=== PATIENT | male | born 1980 | race Caucasian/White ===

== ENCOUNTER → 2016-05-28 | Outpatient (CLI) | payer BC ==
[~2016-05-28] MED LIST: ALPPOPS5 OPB; DORZ1SOL OPB; FOLI1TAB7 PO; LATA0.009 OPB; LISI20TA3 PO; METH2.5T PO; PREDPOW63 PO; SERT25TA PO; TIMO0.2534 OPB
[2016-05-28 14:11] LABS: CHOLESTEROL/HDL RATIO 5.6
[2016-05-28 14:59] LABS: ESTIMATED AVERAGE GLUCOSE 100 mg/dl; HA1C FLAG Normal (Normal)
== END | disposition home or self-care (01) ==
LOC: C.LABBC 10:43
PROVIDERS: ATTEND Internal Medicine
DX: R73.01 Impaired fasting glucose (principal)

== ENCOUNTER → 2017-01-12 | Outpatient (CLI) | payer BC | END | disposition home or self-care (01) | LOC: C.PATHSPEC 11:50 | PROVIDERS: ATTEND Plastic Surgery | DX: L98.9 Disorder of the skin and subcutaneous tissue, unspecified (principal) ==

== ENCOUNTER → 2017-02-11 | Outpatient (CLI) | payer BC ==
[2017-02-11 14:33] LABS: ALT/SGPT 35 U/L (12-78); AST/SGOT 19 U/L (15-37); BLOOD UREA NITROGEN 11 mg/dl (7-18); BUN/CREATININE RATIO 13.3 (10-20); CALCIUM 8.8 mg/dl (8.5-10.1); CARBON DIOXIDE 25 mmol/L (21-32); CHLORIDE 106 mmol/L (98-107); CHOLESTEROL 209 mg/dl (0-200); CREATININE 0.83 mg/dl (0.60-1.40); GLUCOSE 105 mg/dl (70-99); POTASSIUM 3.9 mmol/L (3.5-5.1); SODIUM 138 mmol/L (136-145); TRIGLYCERIDES 130 mg/dl (0-150); VERY LOW DENSITY LIPOPROT CALC 26 mg/dl
[2017-02-11 14:44] LABS: ALKALINE PHOSPHATASE 111 U/L (45-117); CHOLESTEROL/HDL RATIO 5.1; HDL CHOLESTEROL 41 mg/dl; LDL CHOLESTEROL CALCULATED 142 mg/dl
== END | disposition home or self-care (01) ==
LOC: C.LABBC 11:28
PROVIDERS: ATTEND Internal Medicine
DX: E78.5 Hyperlipidemia, unspecified (principal); R73.01 Impaired fasting glucose; I10 Essential (primary) hypertension

== ENCOUNTER → 2017-02-25 | Outpatient (CLI) | payer BC ==
--- NOTE | 2017-02-25 13:58 | DIAGNOSTIC IMAGING REPORT ---
LEFT ANKLE 3 VIEWS HISTORY: Left ANKLE PAIN COMPARISON: None. FINDINGS: There is no fracture or dislocation. Mild focal soft tissue swelling anterior to the distal tibia. No radiopaque foreign bodies. IMPRESSION: No fractures. Mild focal soft tissue swelling anterior to the distal tibia. Electronically signed by: Jaspreet Adam M.D. 02/25/2017 1:56 PM Dictated Date/Time: 02/25/2017 1:53 PM
== END | disposition home or self-care (01) ==
LOC: C.RAD1850 13:37
PROVIDERS: ATTEND Physician Assistant
DX: M25.572 Pain in left ankle and joints of left foot (principal)

== ENCOUNTER → 2017-03-02 | Outpatient (CLI) | payer BC ==
--- NOTE | 2017-03-02 09:04 | DIAGNOSTIC IMAGING REPORT ---
LEFT ANKLE ULTRASOUND CLINICAL HISTORY: M25.572 Left ankle pain COMPARISON STUDY: Left ankle 02/25/2017. FINDINGS: Soft tissue edema/swelling seen within the anterior ankle. There is identification of the anterior tibialis tendon. This appears symmetric to the right side. IMPRESSION: Focal soft tissue swelling/edema within the anterior ankle surrounding the anterior tibialis tendon. However, the tendon appears intact Electronically signed by: Jaspreet Adam M.D. 03/02/2017 9:02 AM Dictated Date/Time: 03/02/2017 8:56 AM
== END | disposition home or self-care (01) ==
LOC: C.ULTR 08:10
PROVIDERS: ATTEND Physician Assistant
DX: M25.572 Pain in left ankle and joints of left foot (principal)

== ENCOUNTER → 2017-06-10 | Outpatient (CLI) | payer OTHER ==
[~2017-06-10] MED LIST changes: -FOLI1TAB7 PO; +FOLI1TAB8 PO
[2017-06-10 13:25] LABS: HEMOGLOBIN 16.1 g/dL (14.0-18.0); MEAN CELL VOLUME 88.6 fL (80-100); MEAN PLATELET VOLUME 10.3 fL (7.4-10.4); PLATELET COUNT 261 K/uL (130-400); RED CELL DISTRIBUTION WIDTH CV 13.1 % (11.5-14.5); RED CELL DISTRIBUTION WIDTH SD 42.4 fL (36.4-46.3); WHITE BLOOD COUNT 14.88 K/uL (4.8-10.8)
[2017-06-10 14:10] LABS: CREATININE 0.97 mg/dl (0.60-1.40)
[2017-06-10 14:11] LABS: BLOOD UREA NITROGEN 22 mg/dl (7-18); CALCIUM 8.8 mg/dl (8.5-10.1); CARBON DIOXIDE 28 mmol/L (21-32); CREATININE 0.97 mg/dl (0.60-1.40); GLUCOSE 95 mg/dl (70-99); POTASSIUM 3.4 mmol/L (3.5-5.1); SODIUM 134 mmol/L (136-145)
[2017-06-10 15:00] LABS: HEP C IGG 13 YRS+OLDER_RFLX NEG (NEG)
[2017-06-11 15:14] LABS: HEPATITIS B CORE IGM TC51854R NON-REACTIVE (NON-REACTIVE)
== END | disposition home or self-care (01) ==
LOC: C.LABBC 09:33
PROVIDERS: ATTEND Internal Medicine
DX: Z15.89 Genetic susceptibility to other disease (principal); H20.023 Recurrent acute iridocyclitis, bilateral; I10 Essential (primary) hypertension

== ENCOUNTER → 2017-07-11 | Outpatient (CLI) | payer OTHER ==
--- NOTE | 2017-07-11 13:56 | DIAGNOSTIC IMAGING REPORT ---
CHEST 2 VIEWS ROUTINE CLINICAL HISTORY: Cough. Fever. COMPARISON STUDY: Chest radiograph October 28, 2015. FINDINGS: There is no pneumothorax or pleural effusion. There is no consolidation to suggest pneumonia. Cardiac size is normal. Mediastinal contours are normal. No evidence for pulmonary edema. A 5 mm metallic density projecting over the medial right clavicle is unchanged. IMPRESSION: No acute cardiopulmonary findings. Electronically signed by: Sesar Kat M.D. 07/11/2017 1:55 PM Dictated Date/Time: 07/11/2017 1:53 PM
== END | disposition home or self-care (01) ==
LOC: C.RAD 12:57
PROVIDERS: ATTEND Internal Medicine
DX: R05 Cough (principal); R50.9 Fever, unspecified

== ENCOUNTER → 2017-08-25 | Outpatient (CLI) | payer OTHER ==
[2017-08-25 13:45] LABS: ALBUMIN 3.8 gm/dl (3.4-5.0); ALT/SGPT 37 U/L (12-78); AST/SGOT 21 U/L (15-37); BLOOD UREA NITROGEN 17 mg/dl (7-18); CALCIUM 8.8 mg/dl (8.5-10.1); CARBON DIOXIDE 27 mmol/L (21-32); CHOLESTEROL 283 mg/dl (0-200); CREATININE 0.99 mg/dl (0.60-1.40); GLUCOSE 94 mg/dl (70-99); POTASSIUM 3.5 mmol/L (3.5-5.1); SODIUM 137 mmol/L (136-145)
[2017-08-25 13:58] LABS: ALKALINE PHOSPHATASE 105 U/L (45-117); LDL CHOLESTEROL CALCULATED 195 mg/dl; TOTAL PROTEIN 7.4 gm/dl (6.4-8.2)
== END | disposition home or self-care (01) ==
LOC: C.LABBC 09:28
PROVIDERS: ATTEND Internal Medicine
DX: E78.5 Hyperlipidemia, unspecified (principal); R73.01 Impaired fasting glucose; Z79.899 Other long term (current) drug therapy; Z15.89 Genetic susceptibility to other disease; I10 Essential (primary) hypertension; H20.10 Chronic iridocyclitis, unspecified eye

== ENCOUNTER → 2017-09-16 | Outpatient (CLI) | payer OTHER ==
--- NOTE | 2017-09-18 15:28 | POLYSOMNOGRAPH REPORT ---
CLINICAL DATA: A 37-year-old male with BMI of 37.[address] Burleson with a history of snoring, fatigue, and a large neck. His [place] sleepiness score is 8/24. On the evening of 09/16/2017, a home sleep apnea test was performed using a [employer] type 3 monitor. RECORDING RESULTS: Total recording time was 10 hours. The patient's estimated sleep time and patient monitoring time was 8.5 hours. RESPIRATORY DATA: Mild sleep apnea was documented. The JOSIAH was 12.7. There were 13 obstructive, 4 mixed, and 13 central apneic episodes. There were 78 hypopneic episodes. The longest respiratory event was 58 seconds. OXIMETRY DATA: Nocturnal hypoxemia was seen. Oxygen marbin was 80%. Mean saturation was 94%. Time below 89% was 8 minutes. HEART RATE DATA: Heart rates ranged from 55-70 beats per minute. SNORING DATA: Snoring was recorded throughout the night. IMPRESSION: Mild obstructive sleep apnea/hypopnea with an JOSIAH of 12.7 with nocturnal hypoxemia. RECOMMENDATIONS: The patient may benefit from weight loss, use of an oral appliance, use of CPAP, or possibly positional therapy since the respiratory events all occurred while supine. Clinical correlation is needed. [facility]
== END | disposition home or self-care (01) ==
LOC: C.NEUR 09:27
PROVIDERS: ATTEND Internal Medicine
DX: R53.83 Other fatigue (principal); G47.33 Obstructive sleep apnea (adult) (pediatric)

== ENCOUNTER 2025-04-07 17:15 | Inpatient (IN) ==
[2025-04-07 19:00] LABS: Hematocrit (blood only) 42.5 % (42.0-52.0); Hemoglobin 15.1 g/dL (14.0-18.0); Immature Granulocytes # (auto) 0.03 K/uL (0.01-0.20); Immature Granulocytes % (auto) 0.3 %; Mean Corpuscular Hemoglobin 29.8 pg (25.0-34.0); Mean Corpuscular Volume 83.8 fL (80.0-100.0); Platelet Count 250 K/uL (130-400); RDW Standard Deviation 36.8 fL (36.4-46.3); Red Blood Count 5.07 M/uL (4.70-6.10); White Blood Count 11.89 K/ul (4.8-10.8)
[2025-04-07] MEDS: KETOROLAC TROMETHAMINE 15 MG/ML VIAL IV STA (19:19)
[2025-04-07 19:26] LABS: Alanine Aminotransferase 32 U/L (7-52); Albumin Globulin Ratio 1.2 (0.9-2); Albumin Level 3.9 gm/dl (3.4-5.0); Alkaline Phosphatase 128 U/L (34-104); Anion Gap 7 (3-11); Bilirubin,Total 0.8 mg/dl (0.2-1.0); Blood Urea Nitrogen 16 mg/dl (6-23); Calcium 8.9 mg/dl (8.6-10.3); Carbon Dioxide 27 mmol/L (21-32); Chloride 104 mmol/L (98-107); Globulin 3.3 gm/dl (2.5-4.0); Glucose 117 mg/dl (70-99(Fasting)); Potassium 4.2 mmol/L (3.5-5.1); Sodium 138 mmol/L (136-145); Total Protein 7.2 gm/dl (6.0-8.3)
[2025-04-07] MEDS: OPTIRAY 320 100ml IV ONE (20:00)
--- NOTE | 2025-04-07 20:34 | CT Scan Report ---
Exam(s): CT PELVIS With Contrast EXAM: CT Pelvis With Intravenous Contrast CLINICAL HISTORY: rectal pain, concern for developing abscess. TECHNIQUE: Axial computed tomography images of the pelvis with intravenous contrast. CTDI is 45.03 mGy and DLP is 1532.31 mGy-cm. Automated exposure control was utilized for the study. A dose lowering technique was utilized adhering to the principles of ALARA. COMPARISON: No relevant prior studies available. FINDINGS: Bowel: The intraperitoneal bowel is unremarkable. No bowel obstruction. No mucosal abnormality. Appendix: No findings to suggest acute appendicitis. Intraperitoneal space: No free air. No significant fluid collection. Bladder: No mass. Reproductive: Unremarkable as visualized. Bones/joints: See below. Soft tissues: There is a rim enhancing fluid collection in the perianal region from 1 to 3 o'clock position measuring 18 x 7 x 17 mm. No surrounding fat stranding of the ischial rectal fat. No extension above the pelvic floor. Vasculature: No lower abdominal aortic aneurysm. Lymph nodes: No enlarged lymph nodes. IMPRESSION: There is a rim enhancing fluid collection in the perianal region from 1 to 3 o'clock position measuring 18 x 7 x 17 mm. The appearance is consistent with a small perianal abscess. No surrounding fat stranding of the ischial rectal fat. No extension above the pelvic floor. Electronically signed by: Sj Howard MD 04/07/25 20:33 PM
[2025-04-07] MEDS: AMPICILLIN/SULBACTAM SOD 3,000 MG/100 ML BAG IV STA (21:14)
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
[2025-04-08] MEDS ORDERED: MoRPHine SULFATE 2 MG/ML CARP IV PRN (00:34)
[2025-04-08] MEDS ORDERED: DOCUSATE SODIUM 100 MG CAP PO PRN (00:34)
[2025-04-08] MEDS ORDERED: POLYETHYLENE (MIRALAX) 17 GM PACK PO PRN (00:34)
[2025-04-08] MEDS ORDERED: ACETAMINOPHEN 325 MG TAB PO PRN ×2 (00:34→08:03)
[2025-04-08] MEDS ORDERED: ALBUTEROL HFA 8 GM INHALER INH PRN (00:34)
[2025-04-08] MEDS: AMPICILLIN/SULBACTAM SOD 3,000 MG/100 ML BAG IV SCH (01:54)
[2025-04-08] MEDS: MoRPHine SULFATE 4 MG/ML 1 ML CARP\\VIAL IV PRN (01:54)
[2025-04-08] MEDS: LACTATED RINGER'S 1,000 ML IV SCH (01:54)
[2025-04-08] MEDS: Patient's HEIGHT &/or WEIGHT Needed STA (01:55)
[2025-04-08] MEDS ORDERED: HYDROmorphone INJ 0.5 MG/0.5 ML SYR IV PRN ×2 (03:23)
[2025-04-08] MEDS: HYDROmorphone INJ 0.5 MG/0.5 ML SYR IV STA (03:44)
[2025-04-08 06:29] LABS: Hematocrit (blood only) 40.0 % (42.0-52.0); Hemoglobin 14.5 g/dL (14.0-18.0); Mean Corpuscular Hemoglobin 30.3 pg (25.0-34.0); Mean Corpuscular Volume 83.5 fL (80.0-100.0); Platelet Count 236 K/uL (130-400); RDW Standard Deviation 36.7 fL (36.4-46.3); Red Blood Count 4.79 M/uL (4.70-6.10); White Blood Count 10.75 K/ul (4.8-10.8)
[2025-04-08 06:49] LABS: Alanine Aminotransferase 27.0 U/L (7-52); Albumin Level 4.0 gm/dl (3.4-5.0); Alkaline Phosphatase 102.0 U/L (34-104); Anion Gap 8.0 (3-11); Bilirubin,Total 0.7 mg/dl (0.2-1.0); Blood Urea Nitrogen 16.0 mg/dl (6-23); Calcium 8.6 mg/dl (8.6-10.3); Carbon Dioxide 25.0 mmol/L (21-32); Chloride 105.0 mmol/L (98-107); Creatinine Clr Calc Pharmacy 148.9 ml/min; Glucose 104.0 mg/dl (70-99(Fasting)); Magnesium 2.1 mg/dl (1.7-2.4); Potassium 4.1 mmol/L (3.5-5.1); Sodium 138.0 mmol/L (136-145); Total Protein 6.7 gm/dl (6.0-8.3)
[2025-04-08] MEDS ORDERED: NALOXONE HCL 0.4 MG/1 ML VIAL/CARP IV PRN (08:05)
--- NOTE | 2025-04-08 08:06 | Hospitalist Progress Note ---
Date of Service April 08, 2025 Assessment & Plan (1) Perianal abscess: (2) Crohn's disease: (3) Obstructive sleep apnea: (4) Hyperlipidemia: (5) Hypertension: Plan 44yo male with history of Crohns disease, well controlled on Infliximab presenting with 8 days of rectal/perineal pain. Patient found to have perianal collection noted on CT. He is afebrile, HD stable and non-toxic in appearance. Does have a mild peripheral leukocytosis with WBC=11.89 #Perianal abscess General Surgery consultation appreciated Underwent I&D with Dr. Pagan on 04/08 Aero/anaerobic wound cultures taken, pending Continue Unasyn 3gm IV q 6 hours Discontinue IV pain medication Will place patient on acetaminophen 650 mg p.o. q8h scheduled overnight Additional [place] (acetaminophenhydrocodone 5-325 mg tablets) as needed for breakthrough pain Continuous pulse oximetry Colace 100mg po BID, Miralax PRN #H/o ERIC 27 polyarthralgia, iritis, and Crohn's disease Well-controlled on infliximab Follows regularly with [facility] #Hyperlipidemia - chronic, stable Continue Crestor 20mg po daily #Hypertension - blood pressure acceptable at present Hold Lisinopril for now Monitor BP #Obstructive sleep apnea Patient may use home CPAP Disposition: Continued stay on MedSurg postop for pain control overnight/while awaiting preliminary wound cultures; hopeful discharge home tomorrow on 04/09 VTE PPx: SCDs Admission and Anticipated Discharge Date Admission Date: April 07, 2025 Subjective Mr. Weber is in good spirits following his procedure today. Whereas earlier today, he was having a "throbbing" pain extending from his coccyx into his perianal/scrotal region, he reports that his pain at this time is currently "nonexistent". He reports that the fentanyl this morning helps alleviate his pain, and that he had a poor reaction to the Dilaudid/morphine last night. He denies any shortness of breath or trouble breathing at this time. NKDA. Overall, he feels much better this afternoon. Was still having a bit of diarrhea following the procedure, as well as some bright red blood in his stool, he denies any pain with bowel movements. No change in urinary habits. He does report that he has been on multiple antibiotics over the past week; no prior history of C. difficile to his knowledge. ROS: Patient endorses diarrhea and BRB in stool. Patient denies perianal pain (resolved), coccyx pain (resolved), headache, chest pain, SOB, cough, abdominal pain, nausea, vomiting, or change in urinary habits. Review of Systems Review of Systems: See HPI above Physical Exam Physical Exam: General: no acute distress; pleasant affect; (Marla) at bedside; non- toxic appearing; cooperative; SpO2 95% on RA HEENT: normocephalic, atraumatic; PERRLA; vision and hearing intact Neck: supple; trachea midline Skin: warm, dry without signs of tenting; no cyanosis; no rashes, bruising, lesions, or erythema noted CV: chest wall NTP; RRR; S1/S2 normal; no murmurs/rubs/gallops; pulses intact a nd symmetric at radial, DP, and PT Lungs: no acute respiratory distress; symmetrical chest wall expansion; clear breath sounds across all lung cook w/o adventitious sounds; no wheezing ABD: Soft, NTP; BS present; no rebound/guarding; no distention Back: Surgical dressing in place, with a spot of BRB; otherwise no signs of erythema, purulent drainage from the wound, or infection MSK: no tics or fasciculations; no edema noted in the LEs b/l, nonerythematous Neuro: A&Ox3; normal mood and affect; fluent speech; sensation intact and symmetric in the LEs b/l Results & Data Results & Data Vital Signs (Past 12 Hours) Vital Signs Pulse Pulse Resp BP BP Pulse Ox O2 Del Method 04/08/25 07:12 85 19 04/08/25 07:09 94 H 15 04/08/25 07:09 120/86 04/08/25 07:09 120/86 04/08/25 07:09 120/86 04/08/25 07:09 120/86 04/08/25 07:09 120/86 04/08/25 07:00 155/96 H 04/08/25 07:00 155/96 H 04/08/25 07:00 155/96 H 04/08/25 07:00 155/96 H 04/08/25 07:00 155/96 H 04/08/25 07:00 81 14 04/08/25 06:58 79 04/08/25 06:51 79 14 04/08/25 06:42 78 14 04/08/25 06:30 76 16 04/08/25 06:21 76 14 04/08/25 06:12 77 15 04/08/25 06:00 75 15 04/08/25 06:00 143/98 H 04/08/25 06:00 143/98 H 04/08/25 06:00 143/98 H 04/08/25 06:00 143/98 H 04/08/25 06:00 143/98 H 04/08/25 05:51 89 15 04/08/25 05:42 79 12 04/08/25 05:30 76 13 04/08/25 05:21 78 12 04/08/25 05:12 77 13 04/08/25 05:00 159/109 H 04/08/25 05:00 159/109 H 04/08/25 05:00 159/109 H 04/08/25 05:00 159/109 H 04/08/25 05:00 159/109 H 04/08/25 05:00 92 H 13 04/08/25 04:51 84 13 04/08/25 04:42 88 15 04/08/25 04:30 90 17 04/08/25 04:21 84 15 04/08/25 04:14 197/111 H 04/08/25 04:14 197/111 H 04/08/25 04:14 197/111 H 04/08/25 04:14 197/111 H 04/08/25 04:14 197/111 H 04/08/25 04:12 124 H 18 04/08/25 04:09 135 H 14 04/08/25 01:42 83 23 04/08/25 01:30 90 24 04/08/25 01:21 89 19 95 04/08/25 01:12 93 H 23 96 04/08/25 01:02 90 17 146/83 H 96 Room Air 04/07/25 23:12 87 15 95 04/07/25 23:09 94 H 04/07/25 23:00 131/92 04/07/25 23:00 131/92 04/07/25 23:00 131/92 04/07/25 23:00 131/92 04/07/25 23:00 131/92 04/07/25 23:00 95 H 18 94 04/07/25 22:51 85 23 94 04/07/25 22:42 83 16 95 04/07/25 22:30 92 H 17 96 04/07/25 22:21 89 19 95 04/07/25 22:12 16 96 04/07/25 22:00 88 20 94 04/07/25 22:00 131/88 04/07/25 22:00 131/88 04/07/25 22:00 131/88 04/07/25 22:00 131/88 04/07/25 22:00 131/88 04/07/25 21:54 159/85 H 04/07/25 21:54 159/85 H 04/07/25 21:54 159/85 H 04/07/25 21:54 159/85 H 04/07/25 21:54 159/85 H 04/07/25 21:54 87 18 97 04/07/25 21:42 15 04/07/25 21:30 90 20 04/07/25 21:21 79 22 04/07/25 21:12 75 28 H 04/07/25 21:00 78 34 H 04/07/25 20:51 75 21 95 04/07/25 20:42 85 22 98 04/07/25 20:30 80 19 95 04/07/25 20:21 84 21 95 04/07/25 20:12 83 21 95 PG Care Time/CCT Total # of Minutes Spent Total Time Spent with Patient: Total time spent is greater than 50% in coordination of care (as documented) at patient's floor/unit and/or counseling patient: Coding [place] [address] SUB INP/OBS CARE 2/35MIN Patient Type Established History Comprehensive Exam Comprehensive Medical Decision Making Moderate Complexity Diagnoses Perianal abscess K61.0 Crohn's disease K50.90 Obstructive sleep apnea G47.33 Mixed hyperlipidemia E78.2 Hyperlipidemia type: mixed hyperlipidemia Essential hypertension I10 Hypertension type: essential hypertension (4) Hyperlipidemia Hyperlipidemia type: mixed hyperlipidemia Qualified Code(s): E78.2 - Mixed hyperlipidemia (5) Hypertension Hypertension type: essential hypertension Qualified Code(s): I10 - Essential (primary) hypertension
[2025-04-08] MEDS: ONDANSETRON INJ 2 MG/ML 2 ML VIAL IV PRN (08:31)
[2025-04-08] MEDS: SERTRALINE HCL 50 MG TABLET PO SCH (08:31)
[2025-04-08] MEDS: ROSUVASTATIN CALCIUM 20 MG TAB PO SCH (08:31)
[2025-04-08] MEDS ORDERED: ACETAMINOPHEN 1000 MG/100 ML IV IV ONE (09:23)
[2025-04-08] MEDS ORDERED: MIDAZOLAM HCL 1 MG/ML 2ML VIAL ONE (09:27)
[2025-04-08] MEDS ORDERED: LIDOCAINE 2% 2 ML VIAL/AMP(20MG/ML) INFIL ONE (09:28)
[2025-04-08] MEDS ORDERED: DEXAMETHASONE SOD INJ 4 MG/ML VIAL ONE (09:28)
[2025-04-08] MEDS ORDERED: SUCCINYLCHOLINE CHLORIDE 20 MG/ML 10 ML VIAL IV ONE (09:28)
[2025-04-08] MEDS ORDERED: ONDANSETRON INJ 2 MG/ML 2 ML VIAL ONE (09:28)
[2025-04-08] MEDS ORDERED: METOCLOPRAMIDE HCL INJ 5 MG/ML 2 ML VIAL ONE (09:28)
[2025-04-08] MEDS ORDERED: PROPOFOL IV EMULSION 10 MG/ML 20 ML VIAL IV ONE (09:28)
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
[2025-04-08] MEDS ORDERED: cefOXitin SOD 1,000 MG VIAL ONE (10:12)
[2025-04-08] MEDS: cefOXitin 2,000 MG in DEXTROSE 5 % MINI-B 50 ML IV ONE (10:13)
[2025-04-08] MEDS: LIDOCAINE 1% LOCAL 20 ML VIAL ONE (10:25)
[2025-04-08] MEDS: EPINEPHrine INJ 1 MG/ML AMP ONE (10:25)
[2025-04-08] MEDS ORDERED: LABETALOL HCL IV 5 MG/ML 20ML IV ONE (10:30)
--- NOTE | 2025-04-08 10:33 | Post Operative Brief Note ---
Immediate Post Op Note Date of Surgery April 08, 2025 Pre & Post Diagnosis Operation Date: 04/08/25 10:00 Pre-Op Diagnosis: Perirectal Abscess I identified the patient and participated in the time-out.: Yes Procedure Operation Date: 04/08/25 10:00 Actual Procedures p Incision and Drainage of Perirectal Abscess(Not Applicable) - Kashif Pagan MD Surgeon Kashif Pagan MD Quality Internship none Estimated Blood Loss 5 Findings Consistent with Post-Op Diagnosis
--- NOTE | 2025-04-08 10:37 | Operative Report ---
Post Operative Report Pre & Post Diagnosis Operation Date: 04/08/25 10:00 Pre-Op Diagnosis: Perirectal Abscess I identified the patient and participated in the time-out.: Yes Procedure Operation Date: 04/08/25 10:00 Actual Procedures p Incision and Drainage of Perirectal Abscess(Not Applicable) - Kashif Pagan MD Surgeon Kashif Pagan MD Windows Software Developer none Estimated Blood Loss 5 Findings Consistent with Post-Op Diagnosis moderate amount of purulent material Specimens culture for aerobic and anaerobic Drains none Anesthesia Type General Complications none Description of Procedure patient taken to the operating room, placed supine on the operating table. Timeouts performed, perioperative blocks were administered, SCD boots were placed. After adequate anesthesia and analgesia was obtained, the patient was placed in lithotomy position was prepped and draped in the normal sterile fashion. Local anesthetic was injected into and around the area of the abscess. 15 blade scalpel was used to enter the abscess cavity. A moderate amount of purulent fluid was returned. This was sent for culture and sensitivity. The abscess cavity was irrigated and loculations were broken up with hemostat. The wound was packed with Betadine soaked packing. Dressings were applied. He tolerated procedure without complication was transferred in stable condition to the PACU. All instrument, needle, sponge counts were correct at the end the case. I attest to the content of the Intraoperative Record and any orders documented therein. Any exceptions are noted below.
--- NOTE | 2025-04-08 11:00 | Anesthesiology Progress Note ---
Date of Service April 08, 2025 Anesthesia Post Procedure Vital Signs Vital Signs: Pulse Pulse Resp BP BP Pulse Ox Pulse Ox 04/08/25 08:05 98 04/08/25 07:12 85 19 04/08/25 07:09 94 H 15 04/08/25 07:09 120/86 04/08/25 07:09 120/86 04/08/25 07:09 120/86 04/08/25 07:09 120/86 04/08/25 07:09 120/86 04/08/25 07:00 155/96 H 04/08/25 07:00 155/96 H 04/08/25 07:00 155/96 H 04/08/25 07:00 155/96 H 04/08/25 07:00 155/96 H 04/08/25 07:00 81 14 04/08/25 06:58 79 04/08/25 06:51 79 14 04/08/25 06:42 78 14 04/08/25 06:30 76 16 04/08/25 06:21 76 14 04/08/25 06:12 77 15 04/08/25 06:00 75 15 04/08/25 06:00 143/98 H 04/08/25 06:00 143/98 H 04/08/25 06:00 143/98 H 04/08/25 06:00 143/98 H 04/08/25 06:00 143/98 H 04/08/25 05:51 89 15 04/08/25 05:42 79 12 04/08/25 05:30 76 13 04/08/25 05:21 78 12 04/08/25 05:12 77 13 04/08/25 05:00 159/109 H 04/08/25 05:00 159/109 H 04/08/25 05:00 159/109 H 04/08/25 05:00 159/109 H 04/08/25 05:00 159/109 H 04/08/25 05:00 92 H 13 04/08/25 04:51 84 13 04/08/25 04:42 88 15 04/08/25 04:30 90 17 04/08/25 04:21 84 15 04/08/25 04:14 197/111 H 04/08/25 04:14 197/111 H 04/08/25 04:14 197/111 H 04/08/25 04:14 197/111 H 04/08/25 04:14 197/111 H 04/08/25 04:12 124 H 18 04/08/25 04:09 135 H 14 04/08/25 01:42 83 23 04/08/25 01:30 90 24 04/08/25 01:21 89 19 95 04/08/25 01:12 93 H 23 96 04/08/25 01:02 90 17 146/83 H 96 04/07/25 23:12 87 15 95 04/07/25 23:09 94 H 04/07/25 23:00 131/92 04/07/25 23:00 131/92 04/07/25 23:00 131/92 04/07/25 23:00 131/92 04/07/25 23:00 131/92 04/07/25 23:00 95 H 18 94 04/07/25 22:51 85 23 94 04/07/25 22:42 83 16 95 04/07/25 22:30 92 H 17 96 04/07/25 22:21 89 19 95 04/07/25 22:12 16 96 04/07/25 22:00 88 20 94 04/07/25 22:00 131/88 04/07/25 22:00 131/88 04/07/25 22:00 131/88 04/07/25 22:00 131/88 04/07/25 22:00 131/88 04/07/25 21:54 159/85 H 04/07/25 21:54 159/85 H 04/07/25 21:54 159/85 H 04/07/25 21:54 159/85 H 04/07/25 21:54 159/85 H 04/07/25 21:54 87 18 97 04/07/25 21:42 15 04/07/25 21:30 90 20 04/07/25 21:21 79 22 04/07/25 21:12 75 28 H 04/07/25 21:00 78 34 H 04/07/25 20:51 75 21 95 04/07/25 20:42 85 22 98 04/07/25 20:30 80 19 95 04/07/25 20:21 84 21 95 04/07/25 20:12 83 21 95 04/07/25 20:06 90 21 96 04/07/25 20:04 148/91 H 04/07/25 20:04 148/91 H 04/07/25 20:04 148/91 H 04/07/25 20:04 148/91 H 04/07/25 19:54 91 H 17 04/07/25 19:51 86 17 95 04/07/25 19:42 93 H 22 95 04/07/25 19:30 83 13 94 04/07/25 19:17 90 04/07/25 19:14 90 16 120/91 96 04/07/25 17:18 116 H 18 160/104 H 96 O2 Del Method O2 Del Method 04/08/25 08:05 Room Air 04/08/25 07:12 04/08/25 07:09 04/08/25 07:09 04/08/25 07:09 04/08/25 07:09 04/08/25 07:09 04/08/25 07:09 04/08/25 07:00 04/08/25 07:00 04/08/25 07:00 04/08/25 07:00 04/08/25 07:00 04/08/25 07:00 04/08/25 06:58 04/08/25 06:51 04/08/25 06:42 04/08/25 06:30 04/08/25 06:21 04/08/25 06:12 04/08/25 06:00 04/08/25 06:00 04/08/25 06:00 04/08/25 06:00 04/08/25 06:00 04/08/25 06:00 04/08/25 05:51 04/08/25 05:42 04/08/25 05:30 04/08/25 05:21 04/08/25 05:12 04/08/25 05:00 04/08/25 05:00 04/08/25 05:00 04/08/25 05:00 04/08/25 05:00 04/08/25 05:00 04/08/25 04:51 04/08/25 04:42 04/08/25 04:30 04/08/25 04:21 04/08/25 04:14 04/08/25 04:14 04/08/25 04:14 04/08/25 04:14 04/08/25 04:14 04/08/25 04:12 04/08/25 04:09 04/08/25 01:42 04/08/25 01:30 04/08/25 01:21 04/08/25 01:12 04/08/25 01:02 Room Air 04/07/25 23:12 04/07/25 23:09 04/07/25 23:00 04/07/25 23:00 04/07/25 23:00 04/07/25 23:00 04/07/25 23:00 04/07/25 23:00 04/07/25 22:51 04/07/25 22:42 04/07/25 22:30 04/07/25 22:21 04/07/25 22:12 04/07/25 22:00 04/07/25 22:00 04/07/25 22:00 04/07/25 22:00 04/07/25 22:00 04/07/25 22:00 04/07/25 21:54 04/07/25 21:54 04/07/25 21:54 04/07/25 21:54 04/07/25 21:54 04/07/25 21:54 04/07/25 21:42 04/07/25 21:30 04/07/25 21:21 04/07/25 21:12 04/07/25 21:00 04/07/25 20:51 04/07/25 20:42 04/07/25 20:30 04/07/25 20:21 04/07/25 20:12 04/07/25 20:06 04/07/25 20:04 04/07/25 20:04 04/07/25 20:04 04/07/25 20:04 04/07/25 19:54 04/07/25 19:51 04/07/25 19:42 04/07/25 19:30 04/07/25 19:17 04/07/25 19:14 04/07/25 17:18 Room Air Pain Intensity Rectal: Pain Intensity: 4 Transfer of Care Handoff Completed per policy Notes Mental Status: alert / awake / arousable Patient Amnestic to Procedure: Yes Nausea / Vomiting: adequately controlled Pain: adequately controlled Airway Patency, RR, SpO2: stable & adequate BP & HR: stable & adequate Hydration State: stable & adequate Anesthetic Complications: no major complications apparent
[2025-04-08] MEDS ORDERED: ONDANSETRON INJ 2 MG/ML 2 ML VIAL IV PRN (11:46)
[2025-04-08] MEDS ORDERED: diphenhydrAMINE Capsule 25 MG CAP PO PRN (11:46)
[2025-04-08] MEDS: ACETAMINOPHEN 325 MG TAB PO SCH (22:24)
[2025-04-09 00:01] VITALS: RESP 16
[2025-04-09 03:04] VITALS: O2SAT 97
[2025-04-09 08:08] VITALS: BP 133/81; PULSE 73; TEMP 97.7
--- NOTE | 2025-04-09 09:34 | Discharge Summary ---
Discharge Summary Date of Service April 09, 2025 Principal Dx & Hospital Course #1 = Principal Diagnosis (1) Perianal abscess: (2) Crohn's disease: (3) Obstructive sleep apnea: (4) Hyperlipidemia: (5) Hypertension: Plan 44yo male with history of Crohns disease, well controlled on Infliximab presenting with 8 days of rectal/perineal pain. Patient found to have perianal collection noted on CT. He is afebrile, HD stable and non-toxic in appearance. Does have a mild peripheral leukocytosis with WBC=11.89 #Perianal abscess General Surgery consultation appreciated Underwent I&D with Dr. Pagan on 04/08 Aero/anaerobic wound cultures taken, pending Patient received Unasyn 3 g IV q6h while inpatient Overnight following the procedure, he did not require any opioid pain medications; pain well-controlled on Tylenol Will plan to discharge patient on Augmentin 875-125 mg tablets BID x 5 additional days NKDA #H/o ERIC 27 polyarthralgia, iritis, and Crohn's disease Well-controlled on infliximab Follows regularly with [facility] #Hyperlipidemia - chronic, stable Continue Crestor 20mg po daily #Hypertension BP normotensive on the morning after procedure; will plan to hold lisinopril on the morning of 04/09 due to cough/normal blood pressure Patient instructed to restart lisinopril on the morning of 04/10 #Obstructive sleep apnea CPAP HS Day of discharge 04/09: VSS Mr. Weber is in good spirits this morning. He slept well last night. He reports his pain is nonexistent, and calls it a "tickle" compared to the pain he had when he first came into the hospital. He rates his pain as 1 out of 10. He denies any severe bleeding from his I&D site; no purulent drainage. His only symptom at this time is some neck soreness and cough following the procedure. He notes that he might have aspirated, or coughed something up down the wrong pipe following his procedure, but denies any chest pain, shortness of breath, HILL, or pleuritic CP this morning. He declined cough medication prescriptions (such as Tessalon Perles or Mucinex) on discharge. It was recommended that, should he develop any dyspnea on exertion or if his coughing gets worse, he should obtain a chest x-ray as an outpatient. Patient reports he has no allergies to antibiotics; no prior history of penicillin allergies. He is hopeful to go home today if possible. ROS: Patient endorses neck soreness, cough, and some abdominal discomfort from coughing. Patient denies fevers overnight, chills, night sweats, difficulty swallowing, headache, chest pain, SOB, HILL, pleuritic CP, nausea, vomiting, bleeding from the surgical site, drainage from surgical site, sacral/perianal pain, or changes in urinary/bowel habits. Disposition: Discharge home Notes For Next Care Provider Patient hospitalized for perianal abscess. Unasyn 3000 mg IV q6h while hospitalized. He underwent an I&D on 04/08 with our general surgery team. Procedure went well. Pain-free at time of discharge. Will be discharged on Augmentin BID x 5 additional days. Admission HPI Per Admitting Provider 44-year-old presents with 2-week history of increasing pain in his rectal region after a large bowel movement in the delgado. He is complaining of severe pain and has not had a bowel movement in the last 2 days. He denies nausea or vomiting. He denies fevers or chills. The pain returns when the pain medicine wears off. Admission Exam Per Admitting Provider General: patient resting comfortably, NAD, non-toxic in appearance, AA&O x 4 Skin: warm, dry, intact, no rashes or lesions HEENT: NC/AT, PERRL, EOMI, anicteric sclera, conjunctiva without injection, external ear normal to inspection and nontender, nares patent, moist mucus membranes, dentition intact, no oropharyngeal lesions, neck supple, trachea midline, no LAD, no thyromegaly, no JVD Heart: +S1/S2, regular, no m/r/g Lungs: equal air entry bilaterally, no rales/rhonchi/wheezes Abd: +BS, soft, NT/ND, no masses/organomegaly/ascites Ext: warm, 2+ pulses in UE/LE bilaterally, no clubbing/cyanosis or edema Neuro: nonfocal, patient AA&O x 4, speech intact, no facial droop, moving all extremities on command with equal strength 5/5 Perineal pain. Fluctuant area noted on rectal exam per ER staff Discharge Exam General: no acute distress; pleasant affect; laying in bed watching TV; non- toxic appearing; cooperative; SpO2 97% on RA HEENT: normocephalic, atraumatic; PERRLA; vision and hearing intact Neck: supple; trachea midline Skin: warm, dry without signs of tenting; no cyanosis; no rashes, bruising, lesions, or erythema noted CV: chest wall NTP; RRR; S1/S2 normal; no murmurs/rubs/gallops; pulses intact and symmetric at radial, DP, and PT Lungs: no acute respiratory distress; symmetrical chest wall expansion; clear breath sounds across all lung cook w/o adventitious sounds; no wheezing ABD: Soft, NTP; BS present; no rebound/guarding; no distention Back/rectum: Nurse ep technologist present in the room; gauze in place; coccyx and perianal region are NTP; no signs of erythema, bleeding, or purulent drainage appreciated MSK: no tics or fasciculations; no edema noted in the LEs b/l, nonerythematous Neuro: A&Ox3; normal mood and affect; fluent speech; sensation intact and symmetric in the LEs b/l Discharge Plan Discharge Items Patient Disposition: Home - Self-Care Reason For Visit: PERIANAL ABSCESS Discharge Diagnosis: Perianal abscess Condition on Discharge: Good Activity: Resume your previous activity Non-emergency contact: Primary Care Provider and Surgeon Call non-emergency contact if: you have any medication questions, your symptoms worsen, your pain is not controlled, you have a fever, your wound has increased redness, your wound has increased drainage and your wound pain has increased Follow-up/Referrals: Shonda Bishop DO [Primary Care Provider] - Diet: Regular Addtl Attending Provider Instructions: You were hospitalized at [facility] from 04/07 to 04/09 for coccyx/perianal pain, suspected to be due to a perianal abscess seen on imaging. You underwent an incision and drainage procedure with Dr. Kashif Pagan on 04/08. Following this procedure, you reported full resolution of your pain. Given you did not have an elevated white blood cell count to indicate signs of severe infection, and your vitals have remained stable 24 hours postop, we feel that you are safe to be discharged home on oral antibiotics. New prescription on discharge: Augmentin 875-125 mg tablets twice daily x 5 days Please note that a wound culture was obtained during your incision and drainage that may take 24 to 48 hours to fully come back. If this wound culture comes back with a bacteria that is resistant to Augmentin, we may need to adjust your antibiotics as an outpatient. If you develop any pain in your lower back side, the safest thing you can take is [id number] acetaminophen (Tylenol 500 mg tablets). You may take these tablets every 6 hours as needed. Please do not exceed 3000 mg daily. Please plan to follow-up with your PCP in the next 7 to 10 days for a transitional care appointment. If you develop any new or worsening symptoms, such as fever, chills, drainage from the incision site, rectal bleeding, changes in urinary/bowel habits, chest pain, trouble breathing, or severe lower back pain, please return to the emergency department immediately. It was a pleasure taking care of you. Please reach out with any questions or concerns. Sincerely, The Hospital medicine team at [facility] Pending Studies at Discharge: Yes Studies:: Aerobic and anaerobic wound culture Stand-Alone Forms: My [facility] Medications and DC Order Prescriptions: New amoxicillin-pot clavulanate 875-125 mg tablet 1 tab PO BID 5 Days Qty: 10 0RF Rx Instructions: Take 1 tablet by mouth twice daily x 5 days Continued (DME) CPAP Machine Misc See Rx Instructions .ROUTE .MEDSUPPLY Qty: 1 0RF Rx Instructions: CPAP AT 5CM WATER PRESSURE WITH HEATED HUMIDITY, P10 NASAL PILLOWS AND SUPPLIES. DX: G47.33 LENGTH OF NEED: 99 MONTHS lisinopril 40 mg tablet 40 mg PO QAM Qty: 30 0RF rosuvastatin 20 mg tablet 20 mg PO DAILY Qty: 30 0RF Remicade 100 mg recon soln 7 mg IV MONTHLY albuterol sulfate [Ventolin HFA] 90 mcg/actuation HFA aerosol inhaler 2 puff inhalation QID PRN (Reason: shortness of breath or wheezing) Qty: 6.7 0RF sertraline 50 mg tablet 50 mg PO QAM Qty: 135 3RF multivitamin Tablet 1 tab PO QAM Diltiazem 2% Rectal Ointment 1 tube ointment 1 bead MO BID PRN (Reason: RECTAL PAIN) Rx Instructions: Mix diltiazem HCl (bulk) powder with aloe vera topical gel to make 2% concentration; Per 1 tube SI Bead; per rectum; BID. Dispense: 1 tube Discontinued ciprofloxacin HCl 500 mg tablet 500 mg PO BID Qty: 14 0RF Rx Instructions: STARTED 04/05/25 FOR 7 DAYS metronidazole 500 mg tablet 500 mg PO BID 7 Days Qty: 14 0RF Rx Instructions: STARTED 04/05/25 FOR 7 DAYS Discharge Orders: Discharge Order (Routine); Ordered 04/09/25 Ordered By: Jaspreet Nuno/Other Patient Handouts: Understanding Perianal Abscess, ED Abscess Perianal Abx Admission Data Admit Date/Time: 04/07/25 21:41 Attending Provider: Chandu Rodríguez Admit Provider: Prerna Quintana Primary Care Provider: Shonda Bishop Other Providers: Prerna Quintana; Kashif Pagan Hospital Stay Data Consultations 04/07/25 20:53 ED Decision to Admit Stat 04/07/25 21:41 Consult General Surgery Routine Procedures Performed Operation Date: 04/08/25 10:00 Actual Procedures p Incision and Drainage of Perirectal Abscess(Not Applicable) - Kashif Pagan MD Diagnostic Imagining Performed 04/07/25 19:39 CT pelvis w/IV con only Stat Pending Results Patient Have Any Pending Studies at Discharge: Yes Discharge Instructions Given to Patient (Per Discharging Provider) You were hospitalized at [facility] from 04/07 to 04/09 for coccyx/perianal pain, suspected to be due to a perianal abscess seen on imaging. You underwent an incision and drainage procedure with Dr. Kashif Pagan on 04/08. Following this procedure, you reported full resolution of your pain. Given you did not have an elevated white blood cell count to indicate signs of severe infection, and your vitals have remained stable 24 hours postop, we feel that you are safe to be discharged home on oral antibiotics. New prescription on discharge: Augmentin 875-125 mg tablets twice daily x 5 days Please note that a wound culture was obtained during your incision and drainage that may take 24 to 48 hours to fully come back. If this wound culture comes back with a bacteria that is resistant to Augmentin, we may need to adjust your antibiotics as an outpatient. If you develop any pain in your lower back side, the safest thing you can take is aifg-ppz-khnrthg acetaminophen (Tylenol 500 mg tablets). You may take these tablets every 6 hours as needed. Please do not exceed 3000 mg daily. Please plan to follow-up with your PCP in the next 7 to 10 days for a transitional care appointment. If you develop any new or worsening symptoms, such as fever, chills, drainage from the incision site, rectal bleeding, changes in urinary/bowel habits, chest pain, trouble breathing, or severe lower back pain, please return to the emergency department immediately. It was a pleasure taking care of you. Please reach out with any questions or concerns. Sincerely, The Hospital medicine team at [facility] Total Time Total Time Spent Total Time Spent (In Minutes): 25 Coding Level of Care Code 31912 IN/OBS DISCH 30 MIN/LESS Diagnoses Perianal abscess K61.0 Crohn's disease K50.90 Obstructive sleep apnea G47.33 Mixed hyperlipidemia E78.2 Hyperlipidemia type: mixed hyperlipidemia Essential hypertension I10 Hypertension type: essential hypertension
--- NOTE | 2025-04-10 13:03 | Electrocardiogram Report ---
Test Reason : Blood Pressure : */* mmHG Vent. Rate : 111 BPM Atrial Rate : 111 BPM P-R Int : 146 ms QRS Dur : 104 ms QT Int : 350 ms P-R-T Axes : 58 47 34 degrees QTcB Int : 476 ms Sinus tachycardia Nonspecific ST abnormality Abnormal ECG When compared with ECG of 23-Oct-2022 23:12, ST now depressed in Inferior leads ST now depressed in Lateral leads Confirmed by Serafin Snider ([id number]) on 04/10/2025 1:03:01 PM Referred By: REFERRED SELF Confirmed By: Serafin Snider
== END 2025-04-09 10:29 | disposition home or self-care (01) | DRG 348 ==
LOC: ED 17:15 → EDINP 21:41 → SUATTDRO 21:41 → EDINP 04-08 09:50 → 3E 04-08 11:44